=== PATIENT | female | born 1975 | race Caucasian/White ===

== ENCOUNTER 2016-09-26 00:55 | Emergency (ER) | payer MEDICAID ==
[2016-09-26 02:00] VITALS: BP 132/74
== END 2016-09-26 01:53 | disposition left against medical advice (07) ==
LOC: ED 00:55
DX: Z53.21 Procedure and treatment not carried out due to patient leaving prior to being seen by health care provider (principal)

== ENCOUNTER 2019-01-01 16:12 | Emergency (ER) | payer OTHER ==
[~2019-01-01] VITALS: Ht 160 cm; Wt 84.4 kg
[2019-01-01 16:29] VITALS: BP 127/80; Ht 160 cm; Wt 84.4 kg
== END 2019-01-01 18:33 | disposition home or self-care (01) ==
LOC: ED 16:12
DX: M46.1 Sacroiliitis, not elsewhere classified (principal); Z90.49 Acquired absence of other specified parts of digestive tract
CPT/HCPCS: J1885

== ENCOUNTER 2019-03-22 16:11 | Emergency (ER) | payer OTHER ==
[~2019-03-22] VITALS: Ht 160 cm; Wt 81.6 kg
[2019-03-22 16:52] VITALS: Ht 160 cm; Wt 81.6 kg
[2019-03-22 21:19] VITALS: BP 117/72
== END 2019-03-22 21:19 | disposition home or self-care (01) ==
LOC: ED 16:11
DX: M54.5 Low back pain (principal); G89.29 Other chronic pain
CPT/HCPCS: J1885

== ENCOUNTER 2019-03-31 20:09 | Emergency (ER) | payer OTHER ==
[~2019-03-31] VITALS: Ht 157.5 cm; Wt 90.7 kg
[2019-03-31 20:16] VITALS: Ht 157.5 cm; Wt 90.7 kg
[2019-03-31 22:25] VITALS: BP 110/65
== END 2019-03-31 22:25 | disposition home or self-care (01) ==
LOC: ED 20:09
DX: S92.332A Displaced fracture of third metatarsal bone, left foot, initial encounter for closed fracture (principal); S93.402A Sprain of unspecified ligament of left ankle, initial encounter; Z90.49 Acquired absence of other specified parts of digestive tract; W23.0XXA Caught, crushed, jammed, or pinched between moving objects, initial encounter; Y93.89 Activity, other specified; Y92.89 Other specified places as the place of occurrence of the external cause; Y99.8 Other external cause status
CPT/HCPCS: J2270; Q0162

== ENCOUNTER 2019-04-06 21:13 | Emergency (ER) | payer OTHER ==
[~2019-04-06] VITALS: Ht 160 cm; Wt 86.2 kg
[2019-04-06 21:36] VITALS: Ht 160 cm; Wt 86.2 kg
[2019-04-06 23:22] VITALS: BP 132/88
== END 2019-04-06 23:22 | disposition home or self-care (01) ==
LOC: ED 21:13
DX: S92.332D Displaced fracture of third metatarsal bone, left foot, subsequent encounter for fracture with routine healing (principal); X58.XXXD Exposure to other specified factors, subsequent encounter

== ENCOUNTER 2019-04-12 23:26 | Emergency (ER) | payer OTHER ==
[~2019-04-12] VITALS: Ht 160 cm; Wt 89.8 kg
[2019-04-12 23:33] VITALS: Ht 160 cm; Wt 89.8 kg
[2019-04-13 00:25] VITALS: BP 117/76
== END 2019-04-13 00:25 | disposition home or self-care (01) ==
LOC: ED 23:26
DX: K08.89 Other specified disorders of teeth and supporting structures (principal); R51 Headache

== ENCOUNTER 2019-04-15 23:15 | Emergency (ER) | payer OTHER ==
[~2019-04-15] VITALS: Ht 160 cm; Wt 89.8 kg
[2019-04-15 23:19] VITALS: Ht 160 cm; Wt 89.8 kg
[2019-04-16 00:22] VITALS: BP 126/83
== END 2019-04-16 00:23 | disposition home or self-care (01) ==
LOC: ED 23:15
DX: S92.902D Unspecified fracture of left foot, subsequent encounter for fracture with routine healing (principal); X58.XXXD Exposure to other specified factors, subsequent encounter

== ENCOUNTER 2019-06-16 11:23 | Emergency (ER) | payer OTHER ==
[~2019-06-16] VITALS: Ht 160 cm; Wt 82.6 kg
[2019-06-16 11:47] VITALS: Ht 160 cm; Wt 82.6 kg
[2019-06-16 13:16] VITALS: BP 115/76
== END 2019-06-16 13:16 | disposition home or self-care (01) ==
LOC: ED 11:23
DX: K02.9 Dental caries, unspecified (principal); K08.89 Other specified disorders of teeth and supporting structures
CPT/HCPCS: J0690

== ENCOUNTER 2019-10-09 03:05 | Emergency (ER) | payer OTHER ==
[~2019-10-09] VITALS: Ht 162.6 cm; Wt 83.5 kg
[2019-10-09 03:19] VITALS: BP 133/87; Ht 162.6 cm; Wt 83.5 kg
== END 2019-10-09 04:09 | disposition home or self-care (01) ==
LOC: ED 03:05
DX: T78.40XA Allergy, unspecified, initial encounter (principal); X58.XXXA Exposure to other specified factors, initial encounter
CPT/HCPCS: Q0163

== ENCOUNTER 2019-10-27 13:24 | Emergency (ER) | payer OTHER ==
[~2019-10-27] VITALS: Ht 160 cm; Wt 84.4 kg
[2019-10-27 13:39] VITALS: Ht 160 cm; Wt 84.4 kg
[2019-10-27 14:01] VITALS: BP 120/65
== END 2019-10-27 14:01 | disposition home or self-care (01) ==
LOC: ED 13:24
DX: K02.9 Dental caries, unspecified (principal); Z90.49 Acquired absence of other specified parts of digestive tract

== ENCOUNTER 2020-01-02 15:25 | Emergency (ER) | payer OTHER ==
[~2020-01-02] VITALS: Ht 160 cm; Wt 83.0 kg
[2020-01-02 15:54] VITALS: Ht 160 cm; Wt 83.0 kg
[2020-01-02 16:34] VITALS: BP 108/74
== END 2020-01-02 16:34 | disposition home or self-care (01) ==
LOC: ED 15:25
DX: M72.2 Plantar fascial fibromatosis (principal)
CPT/HCPCS: J1885

== ENCOUNTER 2020-01-14 13:18 | Emergency (ER) | payer OTHER ==
[~2020-01-14] VITALS: Ht 162.6 cm; Wt 81.2 kg
[2020-01-14 13:24] VITALS: Ht 162.6 cm; Wt 81.2 kg
[2020-01-14 15:02] VITALS: BP 119/66
== END 2020-01-14 15:02 | disposition home or self-care (01) ==
LOC: ED 13:18
DX: M54.5 Low back pain (principal); G89.29 Other chronic pain
CPT/HCPCS: J1885

== ENCOUNTER 2020-03-30 12:34 | Emergency (ER) | payer OTHER | END 2020-03-30 14:25 | disposition other institution (70) | LOC: ED 12:34 | DX: Z02.89 Encounter for other administrative examinations (principal) ==

== ENCOUNTER 2020-03-30 12:34 | Emergency (ER) | payer OTHER ==
[~2020-03-30] VITALS: Ht 157.5 cm; Wt 85.7 kg
[2020-03-30 12:37] VITALS: Ht 157.5 cm; Wt 85.7 kg
[2020-03-30 14:30] VITALS: BP 132/82
== END 2020-03-30 14:25 | disposition other institution (70) ==
LOC: ED 12:34
DX: F41.9 Anxiety disorder, unspecified (principal); S09.8XXA Other specified injuries of head, initial encounter; F15.10 Other stimulant abuse, uncomplicated; Y04.2XXA Assault by strike against or bumped into by another person, initial encounter; Y93.89 Activity, other specified; Y92.89 Other specified places as the place of occurrence of the external cause; Y99.8 Other external cause status

== ENCOUNTER 2020-05-04 17:17 | Emergency (ER) | payer OTHER ==
[~2020-05-04] VITALS: Ht 160 cm; Wt 86.2 kg
[2020-05-04 17:47] VITALS: BP 151/82; Ht 160 cm; Wt 86.2 kg
== END 2020-05-04 20:08 | disposition home or self-care (01) ==
LOC: ED 17:17
DX: M79.604 Pain in right leg (principal); M54.10 Radiculopathy, site unspecified; R03.0 Elevated blood-pressure reading, without diagnosis of hypertension; F32.9 Major depressive disorder, single episode, unspecified; F17.210 Nicotine dependence, cigarettes, uncomplicated

== ENCOUNTER 2020-07-15 14:26 | Emergency (ER) | payer OTHER ==
[~2020-07-15] VITALS: Ht 160 cm; Wt 84.4 kg
[2020-07-15 14:38] VITALS: BP 121/80; Ht 160 cm; Wt 84.4 kg
[2020-07-15] MEDS ORDERED: ULTRAM50 MG PO ×5 (16:28→16:40)
[2020-07-15] MEDS ORDERED: MOT600 PO (16:28)
== END 2020-07-15 17:00 | disposition home or self-care (01) ==
LOC: ED 14:26
DX: M51.36 Other intervertebral disc degeneration, lumbar region (principal); F15.10 Other stimulant abuse, uncomplicated; E66.9 Obesity, unspecified
CPT/HCPCS: J1885

== ENCOUNTER 2020-07-31 18:05 | Emergency (ER) | payer OTHER ==
[~2020-07-31] VITALS: Ht 160 cm; Wt 87.1 kg
[~2020-07-31 18:05] MED LIST: MOT600 PO; ULTRAM50 MG PO
[2020-07-31 18:16] VITALS: Ht 160 cm; Wt 87.1 kg
[2020-07-31] MEDS ORDERED: GOOD SENSE PAI500 M1 PO (19:11)
[2020-07-31 19:20] VITALS: BP 113/69
== END 2020-07-31 19:20 | disposition home or self-care (01) ==
LOC: ED 18:05
DX: M51.36 Other intervertebral disc degeneration, lumbar region (principal)
CPT/HCPCS: J1885